=== PATIENT | male | born 1995 | race African-American/Black ===

== ENCOUNTER 2025-01-17 18:45 | Emergency (ER) | payer MEDICAID ==
[~2025-01-17] VITALS: Ht 175.3 cm; Wt 86.4 kg
[2025-01-17 18:58] VITALS: TEMP 97.9
[2025-01-17] MEDS ORDERED: NAPR-1197 PO (19:02)
[2025-01-17 19:25] LABS: APPEARANCE,URINE HAZY (CLEAR); GLUCOSE, URINE (UA) NEGATIVE (NEGATIVE); LEUKOCYTE ESTERASE ,URINE NEGATIVE (NEGATIVE); NITRATE,URINE NEGATIVE (NEGATIVE); OCCULT BLOOD,URINE NEGATIVE (NEGATIVE); SPECIFIC GRAVITIY, URINE 1.024 (1.003-1.030)
[2025-01-17 19:38] LABS: PLATELET COUNT (AUTO) 243 K/uL (150-450); RED BLOOD CELL COUNT(AUTO) 5.12 MIL/uL (4.50-5.90); RED CELL DISTRIBUTION WIDTH 13.6 % (11.5-14.5); WHITE BLOOD COUNT (AUTO) 10.6 K/uL (4.5-11.0)
[2025-01-17 19:49] LABS: CALCIUM, TOTAL 8.7 mg/dL (8.8-10.5); CREATININE 0.84 mg/dL (0.60-1.30); GLOMERULAR FILTR. RATE CALC > 60 mL/min (>60); GLUCOSE,RANDOM 94 mg/dL (70-110); SODIUM SERUM 139 mmol/L (136-145); UREA NITROGEN, BLOOD 10 mg/dL (7-18)
[2025-01-17 19:53] LABS: ASPARTATE AMINOTRANSFERASE 34.0 U/L (15-37); TOTAL PROTEIN, SERUM 7.5 g/dL (6.4-8.2)
[2025-01-17 21:32] VITALS: BP 111/82; PULSE 76; RESP 18; O2SAT 98
== END 2025-01-17 23:18 | disposition left against medical advice (07) ==
LOC: EMS 18:45
DX: R10.A2 Flank pain, left side (principal); Z53.21 Procedure and treatment not carried out due to patient leaving prior to being seen by health care provider
CPT/HCPCS: 80048; 80076; 81003; 83690; 85025; 99281